=== PATIENT | female | born 1945 | race Caucasian/White ===

== ENCOUNTER → 2017-10-28 08:49 | Outpatient (CLI) | payer OTHER, MEDICARE, SELFPAY ==
--- NOTE | 2017-10-28 08:53 | XR_ITS ---
DEXA SCAN.-BONE DENSITY STUDY HIPS AND LUMBAR SPINE HISTORY: Postmenopausal female hypothyroidism low calcium intake family history. Takes thyroid medication levothyroxin TECHNIQUE: DEXA scan hip and lumbar spine The most complete data summary and color graphic presentation of the today's ( and any prior ) DEXA findings are available in PACS. Definition and treatment guidelines included. COMPARISON: None LUMBAR SPINE: Normal bone density L1 vertebral body demonstrates the lowest T score 0.6 with BMD1.196 g/cm sq Overall mean lumbar L1-L4 T score 1.5 with BMD1.36 g/cm sq . . HIPS: Femoral neck density is best predictor of hip fracture risk . Left femoral neck demonstrates the lowest T score -1.3 with BMD0.856 g/cm sq . Right femoral neck T score -1.1 Averaging region included yields today's Hip Mean T score = -0.2 with BMD0.98 g/cm sq .. IMPRESSION 1. LUMBAR SPINE: Normal bone density at all levels 2. 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 Left femoral neck T score -1.3 WHO criteria for post-menopausal, Women: Normal: T-score at or above -1 SD Osteopenia: T-score between -1 and -2.5 SD Osteoporosis: T-score at or below -2.5 SD
== END ==
PROVIDERS: Family Provider Family Medicine; PCP Family Medicine; Visit Provider Family Medicine
DX: M85.89 Other specified disorders of bone density and structure, multiple sites (principal)
CPT/HCPCS: 77080

== ENCOUNTER → 2021-02-15 11:13 | Outpatient (CLI) | payer MEDICARE, OTHER, SELFPAY | PROVIDERS: PCP Family Medicine; Visit Provider Ophthalmology | DX: Z01.812 Encounter for preprocedural laboratory examination (principal); Z11.52 Encounter for screening for COVID-19 | CPT/HCPCS: C9803; U0003; U0005 ==

== ENCOUNTER 2021-02-17 07:49 | Day surgery (SDC) | payer MEDICARE, OTHER, SELFPAY ==
[2021-02-11 14:32] VITALS: BMI 25.3
[2021-02-17] VITALS (7 sets, daily range): BP systolic 108–145; BP diastolic 55–70; PULSE 52–60; RESP 16; TEMP 36.1–36.4; O2SAT 95–99
[2021-02-19 07:48] LABS: POC Glucose,Bedside 161 (70-110)
== END 2021-02-17 11:05 | disposition home or self-care (01) ==
LOC: OR 07:51
PROVIDERS: PCP Family Medicine; Visit Provider Ophthalmology
DX: H25.9 Unspecified age-related cataract (principal); H53.149 Visual discomfort, unspecified; H02.831 Dermatochalasis of right upper eyelid; H02.834 Dermatochalasis of left upper eyelid; E11.9 Type 2 diabetes mellitus without complications; I10 Essential (primary) hypertension; Z79.899 Other long term (current) drug therapy; Z88.2 Allergy status to sulfonamides
CPT/HCPCS: 66984; 82962; V2632

== ENCOUNTER → 2021-03-02 08:10 | Outpatient (CLI) | payer MEDICARE, OTHER, SELFPAY | PROVIDERS: Visit Provider Ophthalmology | DX: Z20.822 Contact with and (suspected) exposure to COVID-19 (principal); Z01.812 Encounter for preprocedural laboratory examination | CPT/HCPCS: C9803; U0003; U0005 ==

== ENCOUNTER 2021-03-03 08:47 | Day surgery (SDC) | payer MEDICARE, OTHER, SELFPAY ==
[2021-02-27 14:20] VITALS: BMI 24.9
[2021-03-03] VITALS (7 sets, daily range): BP systolic 130–179; BP diastolic 64–87; PULSE 58–72; RESP 14–18; TEMP 36.6–36.8; O2SAT 96–100
[2021-03-03 09:25] LABS: POC Glucose,Bedside 201 (70-110)
== END 2021-03-03 11:00 | disposition home or self-care (01) ==
LOC: OR 08:50
PROVIDERS: PCP Family Medicine; Visit Provider Ophthalmology
DX: H25.9 Unspecified age-related cataract (principal); H53.149 Visual discomfort, unspecified; H02.831 Dermatochalasis of right upper eyelid; H02.834 Dermatochalasis of left upper eyelid; E11.9 Type 2 diabetes mellitus without complications; I10 Essential (primary) hypertension; Z79.899 Other long term (current) drug therapy; Z88.2 Allergy status to sulfonamides
CPT/HCPCS: 66984; 82962; V2632

== ENCOUNTER → 2022-06-28 10:41 | Outpatient (CLI) | payer MEDICARE, OTHER, SELFPAY ==
--- NOTE | 2022-06-28 | CA_ITS ---
FINAL REPORT TECHNIQUE: [place] scale, color and spectral doppler images of the bilateral carotid arteries were obtained. CLINICAL HISTORY: RT BRUIT,HTN FINDINGS: Peak systolic velocity in the right internal carotid artery is 86 cm/sec. The internal carotid to common carotid artery ratio is 1.2. There is no significant carotid artery stenosis and no significant plaque formation. The right vertebral artery is normal in direction. Peak systolic velocity in the left internal carotid artery is 89 cm/sec. The internal carotid to common carotid artery ratio is 1.1. There is no significant carotid artery stenosis and no significant plaque formation. The left vertebral artery is normal in direction. IMPRESSION: No ultrasound evidence of hemodynamically significant carotid artery stenosis. Normal peak systolic velocities and normal internal to common carotid artery ratios bilaterally. Reviewed, Interpreted and Dictated by Suzanne Beck MD Transcribed by Moreno Mckeon Authenticated and . [facility]
== END ==
PROVIDERS: PCP Family Medicine; Visit Provider Family Medicine
DX: R09.89 Other specified symptoms and signs involving the circulatory and respiratory systems (principal)
CPT/HCPCS: 93880

== ENCOUNTER → 2022-12-20 09:02 | Outpatient (CLI) | payer MEDICARE, OTHER, SELFPAY ==
--- NOTE | 2022-12-20 09:14 | MM_ITS ---
PROCEDURE INFORMATION: Exam: Bilateral Screening 3D Mammography Exam date and time: 12/20/2022 9:15 AM Age: 77 years old Clinical indication: Screening. No family history of breast cancer. TECHNIQUE: Imaging protocol: Bilateral Screening tomosynthesis and 2D mammography including computer-aided detection (CAD) when performed. COMPARISON: No relevant prior studies available.If prior mammograms are provided, I am happy to add an addendum. FINDINGS: MAMMOGRAPHY: Breast composition: There are scattered areas of fibroglandular density. Mass: None. Architectural distortion: None. Calcifications: Questionable grouping of calcifications in the right upper outer quadrant posterior 3rd. Asymmetric density: Possible asymmetry, best seen in the left upper breast middle to posterior 3rd in the MLO view, frame 19, which reflect summation of tissue questionably lateral, central, and medial on the CC projection frame 33. Skin thickening: None. Axillary adenopathy: None. IMPRESSION: Comparison to prior mammogram will be most helpful. If this is not provided within 2 weeks, patient will be recalled for bilateral diagnostic mammography with magnification views on the right in CC and ML and spot compression on the left in CC and MLO as well as left sonography for further evaluation of questionable right calcifications and left asymmetries. ASSESSMENT: BI-RADS Category 0: Incomplete- Need Additional Imaging Evaluation and/or Prior Mammograms for Comparison
--- NOTE | 2022-12-20 09:14 | XR_ITS ---
FINAL REPORT TECHNIQUE: Bone densitometry calculations of the lumbar spine and left hip were obtained. CLINICAL HISTORY: . osteopenia COMPARISON: None FINDINGS: Using L1-4, the bone mineral density of the spine is 1.128 g/cm2, corresponding to T-score of 0.7 and a Z score of 3.2. This is within the range of normal. Using the left hip, the bone mineral density of the femoral neck is 0.696 g/cm2, corresponding to a T-score of -1.4 and a Z-score of 0.8. This is within the range of osteopenia. FRAX 10 year fracture risk is 2.3% for a hip fracture and 11% for a major osteoporotic fracture. NOTE: T-score: Standard deviation compared with peak bone mass of young adult mean. *Following the recommendations of the International Society of Bone densitometry, classification of hip BMD is based on the lower of two T-scores; total hip or femoral neck. IMPRESSION: 1. Bone mineral density of the lumbar spine within the range of normal. 2. Bone mineral density of the left femoral neck within the range of osteopenia. Reviewed, Interpreted and Dictated by Suzanne Beck MD Transcribed by Cayla Gutierres Authenticated and . [facility]
== END ==
PROVIDERS: PCP Family Medicine; Visit Provider Family Medicine
DX: Z12.31 Encounter for screening mammogram for malignant neoplasm of breast (principal); R01.1 Cardiac murmur, unspecified; Z78.0 Asymptomatic menopausal state
CPT/HCPCS: 77063; 77067; 77080; 93306

== ENCOUNTER → 2023-01-20 13:44 | Outpatient (CLI) | payer MEDICARE, OTHER, SELFPAY ==
--- NOTE | 2023-01-20 13:46 | MM_ITS ---
PROCEDURE INFORMATION: Exam: US Left Breast, Complete MG Bilateral Diagnostic Breast Tomosynthesis Exam date and time: 01/20/2023 2:43 PM Age: 78 years old Clinical indication: Patient recalled on the basis of a screening mammogram for further evaluation; right breast calcifications and left breast asymmetry TECHNIQUE: Imaging protocol: Complete ultrasound of all four quadrants of the left breast and the retroareolar regions, including ultrasound of the axilla when performed. Bilateral Diagnostic tomosynthesis and 2D mammography including computer-aided detection (CAD) when performed. Unilateral or bilateral exam. COMPARISON: MG MM DIG MAMM BI DX W/CAD 01/20/2023 2:02 PM FINDINGS: MAMMOGRAPHY: Digital diagnostic magnification views of the right upper outer quadrant, middle third demonstrates a cluster of variable microcalcifications spanning 1.0 cm of breast tissue. There is no associated soft tissue mass. The calcifications are radiographically indeterminate. Digital diagnostic spot compression views of the left breast and 90 degree lateral view of the left breast demonstrate normal overlapping fibroglandular structures without persistent mass or asymmetry identified. ULTRASOUND: Sonographic images of the left breast including the retroareolar region, all 4 quadrants and the axilla do not demonstrate any solid masses. Incidental superficial 1 o'clock axis 0.3 cm cyst 4 cm from the nipple. No architectural distortion or acoustical shadowing. No skin thickening or axillary adenopathy. IMPRESSION: 1. Indeterminate right breast calcifications. Stereotactic core biopsy is recommended for further evaluation. 2. No persistent focal asymmetry in the left breast. ASSESSMENT: BI-RADS Category 4: Suspicious
== END ==
PROVIDERS: PCP Family Medicine; Visit Provider Family Medicine
DX: R92.8 Other abnormal and inconclusive findings on diagnostic imaging of breast (principal)
CPT/HCPCS: 76641; 77062; 77066; G0279

== ENCOUNTER → 2023-02-03 07:33 | Outpatient (CLI) | payer MEDICARE, OTHER, SELFPAY ==
--- NOTE | 2023-02-03 07:37 | MM_ITS ---
FINAL REPORT CLINICAL HISTORY: . right breast suspicious calcs FINDINGS: STEREOTACTIC GUIDED RIGHT BREAST BIOPSY, CLIP PLACEMENT, SPECIMEN RADIOGRAPH AND POST BIOPSY MAMMOGRAM Indication: Suspicious calcifications Findings: The stereotactic guided breast biopsy procedure was explained in detail to the patient including potential risk and benefits. The patient voiced an understanding of the procedure, was given an opportunity to ask questions, after which informed consent was obtained. The patient was positioned upon the stereotactic unit in the supine position. The breast was prepped in the usual sterile fashion. Subcutaneous soft tissues were anesthetized with lidocaine with epinephrine. Subsequently, with intermittent stereotactic guidance, the stereotactic biopsy needle was advanced into the breast in the region of the mammographic abnormality corresponding to recent diagnostic mammogram. Multiple vacuum assisted core samples were obtained. Sampling was thought to be adequate and the biopsy clip marker was deployed in the region of biopsy. Additional imaging as detailed below was performed. Specimen radiograph: Calcifications confirmed adequate Post procedure routine CC and MLO view mammogram: Post biopsy changes. Biopsy marker clip noted to be in the appropriate location. Patient tolerated the procedure well. No immediate complications. IMPRESSION: 1. Technically successful stereotactic guided biopsy of right breast calcifications 2. Biopsy marker clip deployed 3. Post biopsy mammogram obtained as above RECOMMENDATION: Histopathology reveals benign findings of fibrocystic change with stromal fibrosis concordant with imaging findings. Six-month mammographic follow-up is recommended as part of post benign biopsy routine surveillance. Authenticated and [facility]
--- NOTE | 2023-02-03 07:37 | MM_ITS ---
FINAL REPORT CLINICAL HISTORY: . clip placement, right breast biopsy for suspicious calcifications FINDINGS: MAMMOGRAM RIGHT TECHNIQUE: Standard digital 2-D views COMPARISON: 01-20-23 and 12-20-22 DENSITY: There are scattered areas of fibroglandular density FINDINGS: Post biopsy marker clip is noted to be in satisfactory position. Postbiopsy changes are noted. Calcifications of interest in the right upper outer quadrant are diminished reflecting of adequate sampling. IMPRESSION: Biopsy marker clip in good position RECOMMENDATION: Histopathology reveals benign findings of fibrocystic change with stromal fibrosis concordant with imaging findings. Six-month mammographic follow-up is recommended as part of post benign biopsy routine surveillance. Authenticated and [facility]
--- NOTE | 2023-02-03 07:37 | MM_ITS ---
FINAL REPORT CLINICAL HISTORY: . surgical specimen, suspicious calcifications FINDINGS: Specimen radiograph from right breast stereotactic biopsy shows calcifications of interest within tissue samples reflecting adequate sampling. Authenticated and [facility]
== END ==
PROVIDERS: PCP Family Medicine; Visit Provider Family Medicine
DX: R92.8 Other abnormal and inconclusive findings on diagnostic imaging of breast (principal)
CPT/HCPCS: 19081; 76098; 77065; 88305

== ENCOUNTER 2024-10-16 13:44 | Outpatient (CLI) | payer MEDICARE, OTHER, SELFPAY ==
--- NOTE | 2024-10-16 | CA_ITS ---
FINAL REPORT TECHNIQUE: Color Doppler, duplex Doppler and harris scale sonography of the bilateral neck arterial vasculature was performed. Velocities were measured in the carotid arteries. Stenosis evaluation based on the validated velocity criteria. CLINICAL HISTORY: HTN,LT BRUIT FINDINGS: The peak systolic velocity of the right common carotid artery is 109 cm/s. The peak systolic velocity of the right internal carotid artery is 87 cm/s and end diastolic velocity 19 cm/s. The ICA/CCA ratio is 1.2. A mild to moderate amount of plaque is present. The right external carotid artery is patent. The right vertebral artery is patent with antegrade flow. The peak systolic velocity of the left common carotid artery is 120 cm/s. The peak systolic velocity of the left internal carotid artery is 127 cm/s and end diastolic velocity 34 cm/s. The ICA/CCA ratio is 1.3. A mild to moderate amount of plaque is present. The left external carotid artery is patent.The left vertebral artery is patent with antegrade flow. IMPRESSION: Less than 50% bilateral carotid stenoses. Bilateral patent vertebral arteries with antegrade flow. If indicated, CTA or MRA could further evaluate. Reviewed, Interpreted and Dictated by Abdiel Salcedo MD Transcribed by Bushra Bo Authenticated and [facility]
== END 2024-10-16 23:59 | disposition home or self-care (01) ==
LOC: RT 13:45
PROVIDERS: PCP Family Medicine; Visit Provider Family Medicine
DX: I65.23 Occlusion and stenosis of bilateral carotid arteries (principal); I10 Essential (primary) hypertension
CPT/HCPCS: 93880